=== PATIENT | male | born 1990 | race Caucasian/White ===

== ENCOUNTER 2023-07-04 17:11 | Emergency (ER) | payer OTHER, BC, SELFPAY ==
--- NOTE | ~2023-07-04 | XR_ITS ---
EXAMINATION: XR tibia fibula RT 2V DATE: 07/04/2023 17:33 INDICATION: Right lower leg injury. TECHNIQUE: 2 views of right tibia and fibula were obtained. COMPARISON: None. FINDINGS: Bone alignment is normal. No fracture. Joint spaces are normal. IMPRESSION: 1. No fracture. Reviewed, dictated and finalized at location E. ICE AND REPAIR SUPERVISOR IMPRESSION: 1. No fracture.
--- NOTE | 2023-07-04 17:14 | ED.LOWEXIN ---
HPI - Extremity Injury (Lower) General Chief Complaint: Extremity Injury, Lower Stated Complaint: INJURED R LEG Time Seen by Provider: 07/04/23 17:14 Source: patient, family and RN notes reviewed History of Present Illness HPI Narrative: Patient is a 32-year-old male who presents to urgent care with complaints of right lower leg pain. Patient states that he was caring approximately a 250 lb cardboard box full with metal and walking backwards while at work today. Patient states the box fell onto his outer right lower leg any is having increasing pain with movement and weight-bearing. Patient is not taking anything [id number] for his pain. No other acute complaints or injuries. No acute distress noted. Patient aware of the plan of care. Some parts of this dictation were generated by voice recognition software and may contain typographical and/or grammatical inaccuracies. Related Data Allergies Allergy/AdvReac Type Severity Reaction Status Date / Time azithromycin Allergy Hives Verified 07/04/23 17:44 Review of Systems Review of Systems: CONSTITUTIONAL: Denies fever, chills, or sweats. EYES: Denies visual changes, redness, or discharge. ENT: Denies rhinorrhea, congestion, sore throat, or otalgia. CARDIOVASCULAR: Denies chest pain, palpitations, or edema. RESPIRATORY: Denies cough or dyspnea. GASTROINTESTINAL: Denies abdominal pain, nausea, vomiting, or diarrhea. GENITOURINARY: Denies dysuria or hematuria. SKIN: Denies rash or itching. MUSCULOSKELETAL: Reports right lower leg pain NEUROLOGIC: Denies headache, numbness, or weakness. All other systems reviewed are negative, except as documented in HPI. PMFSH Comments At the time of my signature, I reviewed and agree with the nursing past medical, surgical, social, and family history. There is no relevant family history pertinent to the patient complaint. Exam Narrative: GENERAL: This is a well-nourished, well-developed patient, in no apparent distress. HEAD: normocephalic, atraumatic. EYES: PERRL. Sclera clear/white. Vision is grossly intact. EARS: External ears normal, NOSE: External nose normal with no obvious nasal discharge, nares without redness, no rhinorrhea. THROAT: Mucous membranes moist NECK: Neck supple, SKIN: warm, intact with no suspicious lesions or rash, good texture and turgor. NEURO: awake, alert, and oriented to person, place and time. There were no obvious focal neurologic abnormalities. EXTREMITIES: No obvious edema, ecchymosis or deformity noted to right lower leg. Increase pain to the lateral calf with flexion and weight-bearing. No warmth to the calf. Range of motion right lower extremity within normal limits with positive strong right pedal pulse. Course Course Level of Care: Express Care Visit Vital Signs Vital signs: Vital Signs Temperature 98.8 F 07/04/23 17:24 Pulse Rate 89 07/04/23 17:24 Respiratory Rate 16 07/04/23 17:24 Blood Pressure 136/91 H 07/04/23 17:24 Pulse Oximetry 99 07/04/23 17:24 Temperature 98.8 F 07/04/23 17:24 Pulse Rate 89 07/04/23 17:24 Respiratory Rate 16 07/04/23 17:24 Blood Pressure 136/91 H 07/04/23 17:24 Pulse Oximetry 99 07/04/23 17:24 Reviewed- Patient is informed that they may have pre-hypertension or hypertension based on a blood pressure reading in the department. I recommend the patient call the primary care provider listed on their discharge instructions or a physician of their choice this week to arrange follow-up for further evaluation of possible pre-hypertension or hypertension. MDM - Extremity Injury (Lower) MDM Narrative Medical decision making narrative: Reviewed x-ray results with the patient. He is aware that x-ray was negative for fracture deformity. Advised patient to use ice/Tylenol/ibuprofen as needed for pain or discomfort. Avoid any strenuous activity until activity as tolerated as normal. Our facility is unable to put you on light
[2023-07-04 17:24] VITALS: BP 136/91; PULSE 89; RESP 16; TEMP 37.1; O2SAT 99
== END 2023-07-04 18:02 | disposition home or self-care (01) ==
PROVIDERS: Emergency Provider Nurse Practitioner Family; PCP Family Medicine
DX: S80.11XA Contusion of right lower leg, initial encounter (principal); W20.8XXA Other cause of strike by thrown, projected or falling object, initial encounter; Y99.0 Civilian activity done for income or pay
CPT/HCPCS: 73590; 99213; G0463

== ENCOUNTER 2024-05-20 13:24 | Emergency (ER) | payer BC, SELFPAY ==
--- NOTE | ~2024-05-20 | XR_ITS ---
EXAMINATION: XR foot RT min 3V DATE: 05/20/2024 13:47 INDICATION: Fifth metatarsal pain and bruising post twisting injury 2 days prior TECHNIQUE: Dorsoplantar, two oblique and lateral views of the right foot were obtained. COMPARISON: None. FINDINGS: Nondisplaced intra-articular likely avulsion fracture at the lateral base of the right fifth metatars al. Alignment remains essentially anatomic with no significant fracture gap or incongruity at the art icular surface. No other fractures identified. 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 Mild soft tissue swelling over the dorsolateral aspect of the midfoot. IMPRESSION: 1. Nondisplaced intra-articular fracture at the base of the right fifth metatarsal. Reviewed, dictated and finalized at location A. PLANT TECHNICIAN IMPRESSION: 1. Nondisplaced intra-articular fracture at the base of the right fifth metatar doug.
--- NOTE | 2024-05-20 13:26 | ED.LOWEXIN ---
HPI - Extremity Injury (Lower) General Chief Complaint: Extremity Injury, Lower Stated Complaint: Injured Right Foot Time Seen by Provider: 05/20/24 13:26 Source: patient Mode of arrival: ambulatory Limitations: no limitations History of Present Illness HPI Narrative: Tanvir is a 33-year-old male patient presenting to the clinic today with complaints of a right foot injury. He reports his foot fell asleep on Sunday night in each attempted to walk on and twisted his foot. Is reporting pain to the lateral right foot as well is over the top of the foot. Pain is worse with walking and bearing weight. Related Data Home Medications Medication Instructions Recorded Confirmed No Home Medications 05/20/24 05/20/24 Allergies Allergy/AdvReac Type Severity Reaction Status Date / Time azithromycin Allergy Hives Verified 05/20/24 13:37 Review of Systems Review of Systems: Pertinent positives per HPI. Patient denies any fever, chills, rash, headache, visual changes, dizziness, cough, runny nose, sore throat, shortness of breath, chest pain, palpitations, nausea, vomiting, diarrhea, constipation, abdominal pain, or any urinary issues. PMFSH Comments At the time of my signature, I reviewed and agree with the nursing past medical, surgical, social, and family history. There is no relevant family history pertinent to the patient complaint. Exam Narrative: General: Well-developed, well nourished, in no apparent distress Head: Normocephalic, atraumatic. Cardio: Regular rate and rhythm, s1 and s2 normal, no murmur appreciated. Resp: Clear to auscultation bilaterally, no rhonchi, rales, wheezing or rubs. Musculoskeletal: No deformity, tender to palpation over the right lateral and dorsal foot, pain with dorsal flexion against resistance as well as valgus varus testing of the foot, grossly normal range of motion, muscle strength strong and equal, peripheral pulse strong, no edema, no cyanosis, normal gait and station Course Course Emergency Course: Portions of this record may have been created with voice recognition software. Level of Care: Express Care Visit Vital Signs Vital signs: Vital Signs Temperature 36.6 C 05/20/24 13:35 Pulse Rate 91 05/20/24 13:35 Respiratory Rate 16 05/20/24 13:35 Blood Pressure 124/85 05/20/24 13:35 Pulse Oximetry 100 05/20/24 13:35 Temperature 36.6 C 05/20/24 13:35 Pulse Rate 91 05/20/24 13:35 Respiratory Rate 16 05/20/24 13:35 Blood Pressure 124/85 05/20/24 13:35 Pulse Oximetry 100 05/20/24 13:35 Vital signs reviewed MDM - Extremity Injury (Lower) MDM Narrative Medical decision making narrative: At the time of visit patient is resting comfortably on the exam table. Patient appears to be nontoxic. Diagnostics: X-ray of the right foot was performed and shows a nondisplaced right 5th base metatarsal fracture Plan: Patient has a nondisplaced fracture at the right 5th base metatarsal. Postop shoe and Abdon wrap was applied. Orthopedic doctor referral was given. Supportive measures were discussed with the patient and they voiced understanding discharge instructions and agrees to treatment plan. Return precautions reviewed Imaging Data Radiologist's impression: ITS Impressions Foot X-Ray 05/20/24 13:47 IMPRESSION: 1. Nondisplaced intra-articular fracture at the base of the right fifth metatarsal. Discharge Plan Discharge Clinical Impression: Metatarsal fracture Qualifiers: Encounter type: initial encounter Metatarsal bone: fifth Fracture type: closed Fracture alignment: nondisplaced Laterality: right Qualified Code(s): S92.354A - Nondisplaced fracture of fifth metatarsal bone, right foot, initial encounter for closed fracture Patient Disposition: Home, Self-Care Condition: Stable Instructions: Antibiotic Form, Foot Fracture in Adults (ED) Additional Instructions: Rest, ice, elevate, and wear abdon wrap as directed Wear postop shoe when up ambulating Tylenol/motrin for pain as discussed. Gradually bear weight No running or sports until healed. Follow-up with orthopedic doctor-Dr. Hahn-call office today to schedule appointment Follow up with your PCP if symptoms persist more than 1 week. Prescriptions: No Action No Home Medications Follow-up/Referrals: David Hahn MD [Physician] - (Right 5th nondisplaced proximal base metatarsal fracture) UNKNOWN,DOCTOR [Non-Staff] - Time of Disposition: 13:56 Quality NIHSS Nursing Documentation ED NIHSS nursing documentation: reviewed/agree
[2024-05-20 13:35] VITALS: BP 124/85; PULSE 91; RESP 16; TEMP 36.6; O2SAT 100
== END 2024-05-20 14:00 | disposition home or self-care (01) ==
PROVIDERS: Emergency Provider Nurse Practitioner Family
DX: S92.354A Nondisplaced fracture of fifth metatarsal bone, right foot, initial encounter for closed fracture (principal); X50.9XXA Other and unspecified overexertion or strenuous movements or postures, initial encounter
CPT/HCPCS: 73630; 99214; G0463